=== PATIENT | female | born 1960 | race Asian ===

== ENCOUNTER → 2023-08-16 | Emergency (ER) | payer SELFPAY ==
[~2023-08-16] VITALS: Ht 157.5 cm; Wt 61.4 kg
[~2023-08-16] MED LIST: LOSA-382 PO; SIMV10TA97 PO
[2023-08-16 09:23] VITALS: BP 160/109; PULSE 92; RESP 16; TEMP 98.4
== END | disposition left against medical advice (07) ==
LOC: EMS 09:19
DX: M54.9 Dorsalgia, unspecified (principal); Z53.21 Procedure and treatment not carried out due to patient leaving prior to being seen by health care provider
CPT/HCPCS: 99281; Z7502